=== PATIENT | female | born 1945 | race Caucasian/White ===

== ENCOUNTER 2017-09-19 09:54 | Outpatient (CLI) | payer MEDICARE, OTHER ==
--- NOTE | 2017-09-22 18:11 | Mammography Report ---
DIGITAL SCREENING MAMMOGRAPHY: 09/19/2017 COMPARISON: 08/31/2014, 03/18/2012, 08/30/2008, and 01/19/2007. TECHNIQUE: Bilateral digital CC, exaggerated CC and MLO projections. FINDINGS: The breast tissue is extremely dense. Innumerable scattered calcifications are seen in both breasts. In the 11 o'clock position posterior third right breast, there is a possible area of architectural distortion. No dominant mass, skin thickening or other potential architectural distortion is seen. IMPRESSION: 1. NEGATIVE LEFT BREAST. BIRADS CATEGORY: 1, NEGATIVE. 2. NEEDS ADDITIONAL EVALUATION RIGHT BREAST. BIRADS CATEGORY: 0, INCOMPLETE. STANDARD QUALIFYING STATEMENTS 1. This examination was reviewed with the aid of Computed-Aided Detection (CAD) . 2. A negative or benign imaging report should not delay biopsy if clinically suspicious findings are present. Consider surgical consultation if warranted. More than 5 % of cancers are not identified by imaging. 3. Dense breasts may obscure an underlying neoplasm. TD: 09/22/2017 16:09 DARCI
== END 2017-09-19 09:55 | disposition home or self-care (01) ==
LOC: DI.N 09:54
PROVIDERS: ATTEND Specialist
DX: Z12.31 Encounter for screening mammogram for malignant neoplasm of breast (principal)
CPT/HCPCS: 77067

== ENCOUNTER 2017-10-28 09:58 | Outpatient (CLI) | payer MEDICARE, OTHER ==
--- NOTE | 2017-10-28 15:14 | Mammography Report ---
Procedure Date: 10/28/2017 Accession Number: [id number] / [id number] Procedure: ANSHU - Diag Special Views Dig RT CPT Code: FULL RESULT: EXAM: Diag Special Views Dig RT DATE: 10/28/2017 10:45 AM CLINICAL HISTORY: Possible architectural distortion right breast TECHNIQUE: Right true lateral and spot compression views COMPARISON: 09/19/2017, 08/31/2014, 03/10/1812 FINDINGS: The right breast demonstrates extremely dense parenchyma. The questioned architectural distortion does not persist on additional compression. Punctate, typically benign calcifications are present. IMPRESSION: Benign findings RECOMMENDATION: Recommend routine annual Screening mammography unless otherwise clinically indicated. BIRADS CATEGORY 2: Benign findings STANDARD QUALIFYING STATEMENTS: 1. This examination was reviewed with the aid of Computer-Aided Detection (CAD). 2. A negative or benign imaging report should not delay biopsy if clinically suspicious findings are present. Consider surgical consultation if warrented. More than 5% of cancers are not identified by imaging. 3. Dense breasts may obscure an underlying neoplasm.
== END 2017-10-28 09:59 | disposition home or self-care (01) ==
LOC: DI 09:58
PROVIDERS: ATTEND Specialist
DX: R92.8 Other abnormal and inconclusive findings on diagnostic imaging of breast (principal)